=== PATIENT | male | born 1945 | race Caucasian/White ===

== ENCOUNTER 2016-09-10 04:08 | Emergency (ER) | payer OTHER ==
[~2016-09-10] VITALS: Ht 167.6 cm; Wt 74.0 kg
[~2016-09-10 04:08] MED LIST: AMLODIPINE BESY10 MG PO; AMOXICILLIN500 M1 PO; AVODART0.5 MG PO; AZITHROMYCIN250 MG PO; BENTYL20 MG PO; CIPRO500 MG PO; COLACE50 MG PO; COMBIVENT RESPIM4 GM IH; CYANOCOBALAM1000 MCG PO; FLOMAX0.4 MG PO; FLONASE16 G1 BOTH NARES; FOLIC ACID1 MG PO; Flomax PO; Folvite PO; Habitrol,Nicoderm CQ TD; LOMOTIL TABLET1 EACH PO; MOTRIN600 MG PO; NORCO 5/3251 TABLET PO; Norvasc PO; OXAYDO5 MG PO; PERCOCET 5/31 TABLET PO; PREDNISONE20 MG PO; PROMETHAZINE HC25 M1 PO; PROTONIX40 MG PO; PYRIDIUM100 MG PO; PYRIDIUM200 MG PO; Protonix PO; ULTRAM50 MG PO; Vibramycin, Doryx PO
[2016-09-10] MEDS ORDERED: ROBITUSSIN AC,T10 ML PO (05:09)
[2016-09-10] MEDS ORDERED: MEDROL DOSEPAK4 MG PO (05:09)
[2016-09-10] MEDS ORDERED: ZITHROMAX Z-PA250 MG PO (05:09)
[2016-09-10 05:26] VITALS: BP 123/79
== END 2016-09-10 05:27 | disposition home or self-care (01) ==
LOC: EME 04:08
DX: J20.9 Acute bronchitis, unspecified (principal); N40.0 Benign prostatic hyperplasia without lower urinary tract symptoms; I10 Essential (primary) hypertension; J44.9 Chronic obstructive pulmonary disease, unspecified; K21.9 Gastro-esophageal reflux disease without esophagitis; F17.200 Nicotine dependence, unspecified, uncomplicated
CPT/HCPCS: 71020; 94640; 99281; 99284; J7512

== ENCOUNTER 2017-06-18 10:01 | Emergency (ER) | payer OTHER ==
[~2017-06-18] VITALS: Ht 170.2 cm; Wt 70.9 kg
[~2017-06-18 10:01] MED LIST changes: +MEDROL DOSEPAK4 MG PO; +ROBITUSSIN AC,T10 ML PO; +ZITHROMAX Z-PA250 MG PO
[2017-06-18 10:09] VITALS: BP 124/91
[2017-06-18] MEDS ORDERED: ZOFRAN4 MG PO (12:36)
[2017-06-18] MEDS ORDERED: PREDNISONE20 MG PO (12:36)
== END 2017-06-18 12:55 | disposition home or self-care (01) ==
LOC: EME 10:01
PROVIDERS: Emergency Medicine
DX: J44.1 Chronic obstructive pulmonary disease with (acute) exacerbation (principal); T36.4X5A Adverse effect of tetracyclines, initial encounter; R11.2 Nausea with vomiting, unspecified; F17.200 Nicotine dependence, unspecified, uncomplicated; Z71.6 Tobacco abuse counseling; I10 Essential (primary) hypertension; Z88.0 Allergy status to penicillin
CPT/HCPCS: 71046; 82948